=== PATIENT | female | born 1950 | race Two or more races ===

== ENCOUNTER 2020-02-25 10:51 | Outpatient (CLI) | payer OTHER | END 2020-02-25 10:54 | disposition home or self-care (01) | LOC: SONOGRAMA 10:51 | PROVIDERS: ATTEND Pathology Anatomic Pathology & Clinical Pathology | DX: D34 Benign neoplasm of thyroid gland (principal); E04.2 Nontoxic multinodular goiter; E04.8 Other specified nontoxic goiter ==